=== PATIENT | male | born 1950 | race Caucasian/White ===

== ENCOUNTER 2019-11-19 13:19 | Observation (INO) | payer MEDICARE, OTHER ==
--- NOTE | 2019-11-19 14:04 | ED Physician Documentation ---
History of Present Illness - Stated complaint Stated Complaint: WEAK LEFT ARM, ELEVATED BP,FAINTING - Chief complaint Chief Complaint: Neuro - History obtained from History obtained from: Patient - History of Present Illness Timing: How many hours ago (2) Pain level max: 0 Pain level now: 0 - Additonal information Additional information: Patient is a 69-year-old male who presents to the emergency department stating that he has had left arm weakness that he believes started around noon today. He states his left leg has been weak as well. Has had intermittent symptoms ongoing for the past month or so. Feels like the symptoms are improving now. Still present though. He states that he did lose vision in his left eye for approximately 2 minutes around 6 weeks ago. Saw his doctor and an control clerk and was diagnosed with ocular migraines. He does not take any medications at home. He is prescribed antihypertensive medications, but does not take them. No recent fall or trauma. No headache. No fevers. No recent illness. Review of Systems Ten Systems: 10 systems reviewed and negative Constitutional: denies: Fever, Chills Respiratory: denies: Cough GI: denies: Nausea, Vomiting, Diarrhea Skin: denies: Rash Musculoskeletal: denies: Neck pain, Back pain Neurologic: denies: Headache PD PAST MEDICAL HISTORY - Past Medical History Past Medical History: Yes Cardiovascular: Hypertension - Past Surgical History Past Surgical History: No - Present Medications Home Medications: Ambulatory Orders Medication Instructions Recorded Confirmed No Known Home Medications 11/19/19 11/19/19 - Allergies Allergies/Adverse Reactions: Allergies Allergy/AdvReac Type Severity Reaction Status Date / Time No Known Drug Allergies Allergy Verified 11/19/19 14:27 - Living Situation Living Situation: reports: With family Living Arrangement: reports: At home - Social History Does the pt smoke?: No Does the pt drink ETOH?: No Does the pt have substance abuse?: No - Family History Family history: reports: Non contributory PD ED PE NORMAL - Vitals Vital signs reviewed: Yes - General General: Alert and oriented X 3, No acute distress - HEENT HEENT: Moist mucous membranes - Neck Neck: Supple, no meningeal sign - Cardiac Cardiac: RRR, Strong equal pulses - Respiratory Respiratory: No respiratory distress, Clear bilaterally - Abdomen Abdomen: Soft, Non tender, Non distended - Back Back: No spinal TTP - Derm Derm: Warm and dry - Extremities Extremities: No edema, Other (difficulty with kddqox-do-dpat with the left arm) - Neuro Neuro: Alert and oriented X 3, No sensory deficit Eye Opening: Spontaneous Motor: Obeys Commands Verbal: Oriented GCS Score: 15 - Psych Psych: Normal mood, Normal affect Results - Vitals Vitals: Vital Signs - 24 hr 11/19/19 11/19/19 11/19/19 13:25 14:33 15:00 Temperature 36.8 C Heart Rate 96 91 89 Respiratory 17 16 16 Rate Blood Pressure 168/100 H 150/103 H 158/94 H O2 Saturation 97 97 97 11/19/19 11/19/19 11/19/19 15:30 16:15 16:30 Temperature Heart Rate 88 94 87 Respiratory 16 16 16 Rate Blood Pressure 149/101 H 144/108 H 145/104 H O2 Saturation 97 97 97 Oxygen O2 Source Room air - EKG (time done) 1333 Rate: Rate (enter#) (94) Rhythm: NSR [place]: Anterior hemiblock (LAFB) Intervals: RBBB Ischemia: Normal ST segments Compare to prior EKG: Old EKG unavailable - Labs Labs: Laboratory Tests 11/19/19 11/19/19 11/19/19 13:39 14:00 14:15 WBC 6.8 RBC 5.58 Hgb 17.3 Hct 50.9 MCV 91.2 MCH 31.0 MCHC 34.0 RDW 12.6 Plt Count 186 MPV 9.4 Neut # (Auto) 4.8 Lymph # (Auto) 1.2 L [place] # (Auto) 0.7 Eos # (Auto) 0.1 Baso # (Auto) 0.1 Absolute Nucleated RBC 0.00 Nucleated RBC % 0.0 PT INR APTT Sodium Potassium Chloride Carbon Dioxide Anion Gap BUN Creatinine Estimated GFR (MDRD) Glucose POC Whole Bld Glucose 99 Calcium Total Bilirubin AST ALT Alkaline Phosphatase Troponin I High Sens Total Protein Albumin Globulin Albumin/Globulin Ratio Lipase Urine Color YELLOW Urine Clarity CLEAR Urine pH 6.0 Ur Specific [place] <=1.005 Urine Protein NEGATIVE Urine Glucose (UA) NEGATIVE Urine Ketones NEGATIVE Urine Occult Blood NEGATIVE Urine Nitrite NEGATIVE Urine Bilirubin NEGATIVE Urine Urobilinogen 0.2 (NORMAL) Ur Leukocyte Esterase NEGATIVE Ur Microscopic Review NOT INDICATED Urine Culture Comments NOT INDICATED 11/19/19 11/19/19 11/19/19 14:15 14:15 14:15 WBC RBC Hgb Hct MCV MCH MCHC RDW Plt Count MPV Neut # (Auto) Lymph # (Auto) [place] # (Auto) Eos # (Auto) Baso # (Auto) Absolute Nucleated RBC Nucleated RBC % PT 12.1 INR 1.1 APTT 27.4 Sodium 137 Potassium 3.8 Chloride 102 Carbon Dioxide 25 Anion Gap 10.0 BUN 22 H Creatinine 1.1 Estimated GFR (MDRD) 66 L Glucose 100 POC Whole Bld Glucose Calcium 9.4 Total Bilirubin 0.8 AST 24 ALT 37 Alkaline Phosphatase 81 Troponin I High Sens 68.5 H* Total Protein 7.2 Albumin 4.3 Globulin 2.9 Albumin/Globulin Ratio 1.5 Lipase 33 Urine Color Urine Clarity Urine pH Ur Specific [place] Urine Protein Urine Glucose (UA) Urine Ketones Urine Occult Blood Urine Nitrite Urine Bilirubin Urine Urobilinogen Ur Leukocyte Esterase Ur Microscopic Review Urine Culture Comments 11/19/19 16:06 WBC RBC Hgb Hct MCV MCH MCHC RDW Plt Count MPV Neut # (Auto) Lymph # (Auto) [place] # (Auto) Eos # (Auto) Baso # (Auto) Absolute Nucleated RBC Nucleated RBC % PT INR APTT Sodium Potassium Chloride Carbon Dioxide Anion Gap BUN Creatinine Estimated GFR (MDRD) Glucose POC Whole Bld Glucose Calcium Total Bilirubin AST ALT Alkaline Phosphatase Troponin I High Sens 74.5 H* Total Protein Albumin Globulin Albumin/Globulin Ratio Lipase Urine Color Urine Clarity Urine pH Ur Specific [place] Urine Protein Urine Glucose (UA) Urine Ketones Urine Occult Blood Urine Nitrite Urine Bilirubin Urine Urobilinogen Ur Leukocyte Esterase Ur Microscopic Review Urine Culture Comments - Rads (name of study) head CT Radiology: Prelim report reviewed, EMP read contemporaneously, See rad report Angio head Radiology: Prelim report reviewed, EMP read contemporaneously, See rad report angio neck Radiology: Prelim report reviewed, EMP read contemporaneously, See rad report PD MEDICAL DECISION MAKING - ED course Complexity details: reviewed results, re-evaluated patient, considered differential, d/w patient, d/w telecom sales consultant ED course: Symptoms seem to resolve in the emergency department. Appears consistent with a TIA. No acute findings on head CT, angiogram of the head and neck. Mildly elevated troponin, no change on the 2-hour delta. No chest pain. Patient is prescribed antihypertensive medications, but does not take them. He states he did take aspirin today. Patient does appear forgetful. He lives at home alone. Has friends for support. We will place the patient in observation for TIA work- up. Appears that he may have had several TIAs over the last month or 2. This document was made in part using voice recognition software. While efforts are made to proofread this document, sound alike and grammatical errors may occur. Departure - Departure Disposition: ED Place in Observation Clinical Impression: TIA (transient ischemic attack) Condition: Stable Discharge Date/Time: 11/19/19 17:46 NIHSS - Time Time: 13:40 - Level of Consciousness Level of consciousness: (0) Alert, Keenly responsive LOC Questions: (0) Answers both Q's correct LOC Commands: (0) Performs both correctly - Gaze Best Gaze: (0) Normal - Visual Visual: (0) No loss - Facial Palsy Facial Palsy: (0) Normal, symmetrical movement - Motor Arms (both separate) Motor Arm (right): (0) No drift Motor Arm (left): (1) Drift - Motor Legs (both separate) Motor Leg (right): (0) No drift Motor Leg (left): (0) No drift - Limb Ataxia Limb Ataxia: (1) Present in 1 limb - Sensory Sensory: (0) Normal - Best Language Best Language: (0) No aphasia - Dysarthria Dysarthria: (0) Normal - Extinction and Inattention (formally neg Extinction and inattention: (0) No abnormality - Total Score/Results Total Score/Result: 2
--- NOTE | 2019-11-19 14:10 | CT Report ---
PROCEDURE: Head W/O Stroke Protocol INDICATIONS: L sided weakness TECHNIQUE: Noncontrast 4.5 mm thick angled axial sections acquired from the foramen magnum to the vertex, with c oronal reformats. For radiation dose reduction, the following was used: automated exposure control, adjustment of mA and/or kV according to patient size. COMPARISON: FINDINGS: Image quality: Excellent. CSF spaces: Basal cisterns are patent. No extra-axial fluid collections. Ventricles are normal in size and shape. Brain: No midline shift. No intracranial masses or hemorrhage. Grier-white matter interface is norm al. Skull and face: Calvarium and visualized facial bones are intact, without suspicious lesions. Sinuses: Visualized sinuses and mastoids are clear. IMPRESSION: 1. No acute intracranial findings. 2. Mild findings likely associated with chronic microvascular ischemic changes. These findings were discussed with Dr. Carrasco at 2:09 PM on 11/19/2019 This study fulfills neurological imaging criteria for inclusion or exclusion of acute stroke therapie s based on available published neurological imaging guidelines. Reviewed by: Faye Sebastian MD on 11/19/2019 2:09 PM PDT Approved by: Faye Sebastian MD on 11/19/2019 2:09 PM PDT Station ID: [id number]
[2019-11-19 14:18] LABS: BILIRUBIN,URINE NEGATIVE (NEGATIVE); CLARITY,URINE CLEAR (CLEAR); GLUCOSE, URINE (UA) NEGATIVE (NEGATIVE); KETONES,URINE (UA) NEGATIVE (NEGATIVE); LEUKOCYTE ESTERASE, URINE NEGATIVE (NEGATIVE); NITRITE,URINE NEGATIVE (NEGATIVE); OCCULT BLOOD,URINE NEGATIVE (NEGATIVE); PROTEIN,URINE NEGATIVE (NEGATIVE); UROBILINOGEN,URINE 0.2 (NORMAL) E.U./dL (NORMAL)
[2019-11-19 14:19] LABS: BASOPHILS # (AUTO) 0.1 10^3/uL (0.0-0.1); BASOPHILS % (AUTO) 0.7 %; EOSINOPHILS # (AUTO) 0.1 10^3/uL (0.0-0.7); EOSINOPHILS % (AUTO) 1.8 %; HGB - HEMOGLOBIN 17.3 g/dL (14.0-18.0); LYMPHOCYTES # (AUTO) 1.2 10^3/uL (1.5-3.5); LYMPHOCYTES % (AUTO) 17.4 %; MEAN CORPUSCULAR VOLUME 91.2 fL (80.0-94.0); MEAN PLATELET VOLUME 9.4 fL (7.4-11.4); MONOCYTES # (AUTO) 0.7 10^3/uL (0.0-1.0); MONOCYTES % (AUTO) 9.5 %; NEUTROPHILS # (AUTO) 4.8 10^3/uL (1.5-6.6); NEUTROPHILS % (AUTO) 70.3 %; PLT - PLATELET COUNT 186 10^3/uL (130-450); RED BLOOD COUNT 5.58 10^6/uL (4.70-6.10); RED CELL DISTRIBUTION WIDTH 12.6 % (12.0-15.0); WHITE BLOOD COUNT 6.8 x10^3/uL (4.8-10.8)
[2019-11-19 14:31] LABS: ALBUMIN 4.3 g/dL (3.2-5.5); ALBUMIN/GLOBULIN RATIO 1.5 (1.0-2.2); BILIRUBIN,TOTAL 0.8 mg/dL (0.2-1.0); CALCIUM 9.4 mg/dL (8.5-10.3); CREATININE 1.1 mg/dL (0.6-1.2); TOTAL PROTEIN 7.2 g/dL (6.7-8.2)
[2019-11-19 14:32] LABS: INR 1.1 (0.8-1.2); PT - PROTHROMBIN TIME 12.1 secs (9.9-12.6)
[2019-11-19 14:40] LABS: PARTIAL THROMBOPLASTIN TIME 27.4 secs (24.9-33.3)
[2019-11-19] MEDS ORDERED: IOVERSOL 320 100 ML VIAL IVP ONE ×2 (14:40→17:34)
--- NOTE | 2019-11-19 15:13 | CT Report ---
PROCEDURE: ANGIO HEAD W/WO INDICATIONS: L arm weakness, L leg weakness CONTRAST: IV CONTRAST: Optiray 320 ml: 10 PO CONTRAST: *NO PO CONTRAST TECHNIQUE: Precontrast 4.5 mm thick angled axial sections acquired from the foramen magnum to the vertex. Afte r the administration of intravenous contrast, 1 mm thick sections acquired through the [place] of [place] is. Postcontrast 4.5 mm thick sections then re-acquired from the foramen magnum to the vertex. 3-di mensional ugsauql-[id number]-[id number] (MIP) and/or volume rendering reformats were acquired of the c entral intracranial vasculature. For radiation dose reduction, the following was used: automated ex posure control, adjustment of mA and/or kV according to patient size. COMPARISON: None. FINDINGS: Image quality: Excellent. Anterior circulation: Intracranial internal carotid arteries are normal in size and flow. The flow within the paired anterior cerebral arteries is normal and symmetric. The flow within the middle cer ebral arteries is normal and symmetric. The anterior communicating artery is seen. No aneurysms are seen. Posterior circulation: The visualized portions of the bilateral vertebral arteries demonstrate normal course and caliber. The right vertebral artery is dominant. They join to form the basilar artery whi ch has a fenestrated appearance near the base (series 5/image 36 and series 12/image 105). The basila r artery demonstrates otherwise normal appearance. Flow within the posterior cerebral arteries is nor mal and symmetric. No aneurysms are seen. CSF spaces: Ventricles are normal in size and shape. Basal cisterns are patent. No extra-axial flu id collections. Brain: No midline shift. No intracranial bleeds or masses. Grier-white matter interface appears int act. Skull and face: Calvarium and facial bones appear intact, without suspicious lesions. Sinuses: Visualized sinuses and mastoids are clear. IMPRESSION: 1. 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 2. No stenosis, aneurysm, or occlusion of the intracranial arteries. Reviewed by: Faye Sebastian MD on 11/19/2019 3:12 PM PDT Approved by: Faye Sebastian MD on 11/19/2019 3:12 PM PDT Station ID: [id number]
--- NOTE | 2019-11-19 15:20 | CT Report ---
PROCEDURE: ANGIO NECK W INDICATIONS: L arm weakness, L leg weakness CONTRAST: IV CONTRAST: Optiray 320 ml: 80 PO CONTRAST: *NO PO CONTRAST TECHNIQUE: After the administration of intravenous contrast, 1.5 mm axial sections acquired from the aortic arch to the [place] of [place]. Coronal 3-D maximum intensity projection (MIP) and/or volume rendering ref ormats were then performed. For radiation dose reduction, the following was used: automated exposur e control, adjustment of mA and/or kV according to patient size. COMPARISON: None. FINDINGS: Image quality: Excellent. Carotid system: The great vessels demonstrate a conventional anatomy as they arise from the aortic a [facility]. The origins of the common carotid arteries appear patent. The common carotid arteries demonstr ate normal calibers and courses. The bifurcation regions appear normal bilaterally. The internal ca rotid arteries demonstrate normal caliber and course. Posterior circulation: The origins of the vertebral arteries appear patent. The more superior porti ons of the vertebral arteries demonstrate normal course and caliber. They join to form the basilar ar abigail which demonstrates a fenestration near the inferior aspect. The more superior portions of the ba silar artery demonstrate normal course and caliber. The right vertebral artery is dominant. Soft tissues: Visualized neck soft tissues demonstrate no suspicious abnormalities. The thyroid gla nd is normal in size. Bones: No suspicious bony lesions. Visualized cervical spine appears normally aligned. IMPRESSION: 1. No stenosis, occlusion, or aneurysm of the cervical arteries. 2. 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 The estimate of stenosis included in the report of the imaging study was calculated using the NASCET method Reviewed by: Faye Sebastian MD on 11/19/2019 3:19 PM PDT Approved by: Faye Sebastian MD on 11/19/2019 3:19 PM PDT Station ID: [id number]
[2019-11-19] MEDS ORDERED: ACETAMINOPHEN 325 MG TABLET PO PRN (16:55)
[2019-11-19] MEDS ORDERED: ONDANSETRON ODT 4 MG TABLET TL PRN (16:55)
[2019-11-19] MEDS ORDERED: SODIUM CHLORIDE FLUSH 0.9% 10 ML SYRINGE IVP PRN (16:55)
[2019-11-19] MEDS ORDERED: ONDANSETRON 4 MG/2 ML VIAL IVP PRN (16:55)
[2019-11-19] MEDS ORDERED: oxyCODONE 5 MG TABLET PO PRN (16:55)
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
[2019-11-19] MEDS: SODIUM CHLORIDE FLUSH 0.9% 10 ML SYRINGE IVP SCH (19:03)
[2019-11-19] MEDS ORDERED: ATORVASTATIN 40 MG TABLET PO SCH (21:00)
[2019-11-20] MEDS: SODIUM CHLORIDE FLUSH 0.9% 10 ML SYRINGE IVP SCH ×3 (00:33→18:14)
[2019-11-20 06:28] LABS: CHOL/HDL RATIO 4.7 (<5.0); CHOLESTEROL 230 mg/dL; HDL CHOLESTEROL 49 mg/dL; LDL CHOLESTEROL,CALCULATED 153 mg/dL; LDL/HDL RATIO 3.1 (<3.6); VLDL CHOLESTEROL 28 mg/dL
[2019-11-20] MEDS ORDERED: ASPIRIN CHEW 81 MG TABLET PO SCH (09:00)
--- NOTE | 2019-11-20 10:32 | PHARMACY PROGRESS NOTE ---
- Best Possible Medication History Admit Date and Time: 11/19/19 6404 Processed by: Nursing Medication History completed: Yes As the person ultimately responsible for medication therapy, providers are able to order a medication from an existing home medication list in [facility] via the "Reconcile Routine" prior to Confirmation of that medication by support architect. Such practice is discouraged except when the physician, in their clinical judgment, deems that a medical need exists for a medication without regard to previous use.
[2019-11-20 15:28] VITALS: BP 139/96
--- NOTE | 2019-11-20 17:03 | MRI Report ---
PROCEDURE: Brain W/O INDICATIONS: TIA, left arm weak TECHNIQUE: Noncontrast axial T1 spin echo, axial T2 fast spin echo, sagittal and axial FLAIR, coronal T2 fast sp in echo, axial gradient echo, axial diffusion and ADC through the brain. COMPARISON: None. FINDINGS: Image quality: Excellent. CSF Spaces: Basal cisterns are patent. No extra-axial fluid collections. Ventricles are normal in size and shape. Brain: No intracranial masses or hemorrhage. Diffuse, scattered nonspecific white matter signal kelly ges, statistically represent chronic microvascular ischemic disease although differential includes ne urodegenerative, infectious/inflammatory, demyelinating etiologies among other possibilities. Grier/white matter interface is normal. Brainstem appears normal. Diffusion-weighted images demons trate subcentimeter focus of right frontal parietal acute ischemia at the vertex. No chronic ischemic insults. Normal intravascular flow voids are present. Skull and face: Calvarium has normal marrow signal. Orbits appear normal. Hmdf-bx-bufmubme right maxillary sinus disease. IMPRESSION: Subcentimeter focus of right frontoparietal lobe acute ischemia at the vertex. Mild to moderate maxillary sinus disease Reviewed by: Kel Sanchez MD on 11/20/2019 5:01 PM PDT Approved by: Kel Sanchez MD on 11/20/2019 5:01 PM PDT Station ID: [id number]
--- NOTE | 2019-11-20 19:32 | Discharge Plan ---
Discharge Plan Problem Reviewed?: Yes Disposition: Home, Self Care Condition: Stable Prescriptions: Atorvastatin [Lipitor] 80 mg PO QPM #30 tablet amLODIPine [Norvasc] 2.5 mg PO DAILY #30 tablet Diet: Low Sodium Activity Restrictions: Activity as Tolerated Shower Restrictions: No Driving Restrictions: No Health Concerns: He came in with an episode of lack of vision in one eye, and left arm/left leg weakness. In the emergency room your exam was negative. CT was negative. In the angiograms that looked at the arteries of your head and neck were also normal. Over the next day we observed you and your telemetry monitoring did not have any arrhythmia. That is important because atrial fibrillation, and arrhythmia, can give you stroke. You do not have that. However we did find you to have valvular heart disease. You have moderate aortic stenosis. Aortic stenosis can give you symptoms of stroke. The revenue officer at [facility] does not feel that is the case. But they would like to see you in follow-up. MRI of the brain did confirm that you had a very small area of stroke in the right front of your brain just underneath your anabaptism. You are walking, talking, eating, and have no speech difficulty. Plan of Treatment: 1. A daily aspirin in the morning 2. A daily blood pressure pill in the morning called amlodipine 3. Cholesterol pill at night. 4. Please see Joaquim lizarraga in the next few days. Aspen lizarraga then needs to refer you to cardiology for evaluation of aortic stenosis combined with a history of stroke. Care Goals: To decrease your risk of recurrent stroke. Assessment: Patient, stepdaughter Narda, understand care goals and will follow through. No Smoking: If you smoke, Please STOP! Call for help. Follow-up with: JOAQUIM LIZARRAGA ARNP [Primary Care Provider] -
[2019-11-20] MEDS ORDERED: amLODIPine 5 MG TABLET PO ONE (19:35)
== END 2019-11-20 19:58 | disposition home or self-care (01) ==
LOC: ED 13:19 → MS3 16:55
PROVIDERS: ADMIT Specialist; ATTEND Specialist
DX: G45.9 Transient cerebral ischemic attack, unspecified (principal); I35.0 Nonrheumatic aortic (valve) stenosis; R29.702 NIHSS score 2; I10 Essential (primary) hypertension; E78.5 Hyperlipidemia, unspecified; K21.9 Gastro-esophageal reflux disease without esophagitis; F41.9 Anxiety disorder, unspecified; R35.1 Nocturia; R79.89 Other specified abnormal findings of blood chemistry; Z87.891 Personal history of nicotine dependence
CPT/HCPCS: 36415; 70450; 70496; 70498; 70551; 80053; 80061; 81003; 83690; 84484; 85025; 85610; 85730; 93005; 93306; 99285; A9270; G0378; Q9967; 81001; 83721; 87086

== ENCOUNTER 2020-08-18 07:18 | Outpatient (CLI) | payer MEDICARE, OTHER ==
[2020-08-18 16:40] LABS: CHOL/HDL RATIO 2.1 (<5.0); CHOLESTEROL 115 mg/dL; HDL CHOLESTEROL 55 mg/dL; LDL CHOLESTEROL,CALCULATED 48 mg/dL; LDL/HDL RATIO 0.9 (<3.6); TRIGLYCERIDES 62 mg/dL; VLDL CHOLESTEROL 12 mg/dL
[2020-08-18 16:43] LABS: PSA TOTAL 6.715 ng/mL (0.000-2.000)
[2020-08-18 19:23] LABS: PSA FREE 1.261 ng/mL (0.16-2.81)
== END 2020-08-18 07:19 | disposition home or self-care (01) ==
LOC: LAB.S 07:18
PROVIDERS: ATTEND Nurse Practitioner Family
DX: R97.20 Elevated prostate specific antigen [PSA] (principal); E78.2 Mixed hyperlipidemia
CPT/HCPCS: 36415; 80061; 83721; 84153; 84154

== ENCOUNTER 2020-10-03 07:56 | Outpatient (CLI) | payer MEDICARE, OTHER ==
[2020-10-03 16:54] LABS: CHOL/HDL RATIO 2.7 (<5.0); CHOLESTEROL 150 mg/dL; HDL CHOLESTEROL 56 mg/dL; LDL CHOLESTEROL,CALCULATED 75 mg/dL; LDL/HDL RATIO 1.3 (<3.6); TRIGLYCERIDES 96 mg/dL; VLDL CHOLESTEROL 19 mg/dL
== END 2020-10-03 07:57 | disposition home or self-care (01) ==
LOC: LAB.S 07:56
PROVIDERS: ATTEND Nurse Practitioner Family
DX: E78.2 Mixed hyperlipidemia (principal)
CPT/HCPCS: 36415; 80061; 83721

== ENCOUNTER 2021-07-07 07:35 | Outpatient (CLI) | payer MEDICARE, OTHER ==
[2021-07-07 15:55] LABS: CHOL/HDL RATIO 4.3 (<5.0); CHOLESTEROL 193 mg/dL; HDL CHOLESTEROL 45 mg/dL; LDL CHOLESTEROL,CALCULATED 131 mg/dL; LDL/HDL RATIO 2.9 (<3.6); TRIGLYCERIDES 85 mg/dL; VLDL CHOLESTEROL 17 mg/dL
== END 2021-07-07 07:36 | disposition home or self-care (01) ==
LOC: LAB.S 07:35
PROVIDERS: ATTEND Nurse Practitioner Family
DX: E78.5 Hyperlipidemia, unspecified (principal); R97.20 Elevated prostate specific antigen [PSA]; R77.8 Other specified abnormalities of plasma proteins
CPT/HCPCS: 36415; 80061; 82728; 83721; 84153

== ENCOUNTER 2021-12-21 10:20 | Day surgery (SDC) | payer MEDICARE, OTHER ==
[~2021-12-21 10:20] MED LIST: BRIMONIDINE 0.2% OPHTH DROPS 5 ML ONE; BSS/LIDOCAINE/EPINEPHRINE 1 ML VIAL ONE; CYCLOPENTOLATE 1% OPHTH DROPS 2 ML ONE; EPINEPHrine 1 MG/ML AMP ONE; KETOROLAC 0.45% OPHTH DROPS ONE; PHENYLEPHRINE 2.5% OPHTH 2 ML DROPS ONE; PROPARACAINE 0.5% OPHTH DROPS 15 ML ONE; TIMOLOL 0.5% OPHTH DROPS ONE; TRIAMCIN/MOXIFLOX OPHTHALMIC 0.6 ML VIAL IO ONE; VANCOMYCIN OPHTH (TOPICAL) 10 MG/ML SYRINGE ONE
[2021-12-21] MEDS ORDERED: LACTATED RINGERS 1,000 ML IV ONE ×2 (10:55→12:04)
[2021-12-21] MEDS ORDERED: MIDAZOLAM 2 MG/2 ML VIAL ONE (11:26)
--- NOTE | 2021-12-21 11:30 | ANESTHESIA ---
Pre-Anesthesia VS, & Labs - Diagnosis nuclear sclerotic cataract right - Procedure right cataract extraction with IOL Vital Signs: Temp Pulse Resp BP Pulse Ox O2 Flow Rate 36.1 C L 58 L 16 136/101 H 100 0 12/21/21 10:44 12/21/21 10:44 12/21/21 10:44 12/21/21 10:44 12/21/21 10:44 12/21/21 10:44 Height: 5 ft 7 in Weight (kg): 69 kg Body Mass Index: 23.8 BMI Classification: Normal - NPO >8 hours Home Medications and Allergies Allergies/Adverse Reactions: Allergies Allergy/AdvReac Type Severity Reaction Status Date / Time No Known Drug Allergies Allergy Verified 11/19/19 14:27 Anes History & Medical History - Anesthetic History Anesthesia Complications: reports: No previous complications - Medical History Cardiovascular: reports: Hypertension, High cholesterol Gastrointestinal: reports: GERD, Other Urinary: reports: Other Neuro: reports: Other (Ocular migraine) Musculoskeletal: reports: Other Endocrine/Autoimmune: reports: None Skin: reports: Psoriasis Smoking Status: Former smoker History of Cancer?: No Plan Anesthesia Type: MAC Consent for Procedure(s) Verified and Reviewed: Yes Code Status: Attempt Resuscitation ASA classification: 2-Mild systemic disease Is this case an emergency?: No
[2021-12-21] MEDS ORDERED: BRIMONIDINE 0.2% OPHTH DROPS 5 ML OPTH ONE (11:56)
[2021-12-21] MEDS ORDERED: EPINEPHrine 1 MG/ML AMP IR ONE (11:56)
[2021-12-21] MEDS ORDERED: TIMOLOL 0.5% OPHTH DROPS OPTH ONE (11:56)
[2021-12-21] MEDS ORDERED: PROPARACAINE 0.5% OPHTH DROPS 15 ML EACHEYE ONE (11:57)
[2021-12-21] MEDS ORDERED: TRIAMCIN/MOXIFLOX OPHTHALMIC 0.6 ML VIAL IO ONE (11:57)
[2021-12-21] MEDS ORDERED: BSS/LIDOCAINE/EPINEPHRINE 1 ML SYRINGE IO ONE (11:57)
[2021-12-21] MEDS ORDERED: VANCOMYCIN OPHTH (TOPICAL) 10 MG/ML SYRINGE TOP ONE (11:58)
--- NOTE | 2021-12-21 12:05 | OPERATIVE REPORT ---
Operative Report - Procedure Note Pathology: Date of Surgery: 12/21/21 Preop Dx: Visually significant cataract right eye. This was the first cataract surgery. Postop Dx: Same Procedure: Phacoemulsification with posterior chamber toric intraocular lens implant right eye Surgeon: Dr. Francisco Murray Anesthesia: Monitored anesthesia care Complications: None Operative Indications: This is a 71-year-old M with progressive vision loss in the right eye due to 2+ nuclear sclerotic and vacuolar cataract. Best corrected visual acuity was 20/30 with glare to 20/200 vision in the right eye. Indications for surgery were: - Overall decrease in vision - Difficulty seeing words on a computer screen - Difficulty reading - Difficulty seeing words, closed captions, or game scores on TV - Difficulty seeing street signs - Difficulty driving in low light or at night - Difficulty driving at night because of headlights from other vehicles - Difficulty with glare or bright lights in any situation The patient was consented at length concerning the risks and benefits of cataract surgery after which the patient expressed a desire to proceed with surgery. Operative Procedure: The patients cornea was marked in the pre-surgical area to indicate the axis for the toric intraocular lens. The patient was taken into OR#3 and placed under monitored anesthesia care. A surgical time-out was conducted confirming correct patient, correct procedure, and correct surgical site. The patient was given topical anesthesia and then prepped and draped in the usual sterile fashion. The eye was entered at the 6 and 3 oclock positions. Intracameral Shugarcaine was injected into the anterior chamber followed by a dispersive viscoelastic. A continuous-tear curvilinear capsulorhexis was performed. The nucleus was hydrodissected and phacoemulsified. The cortex was evacuated using automated infusion and aspiration. A cohesive viscoelastic was injected into the capsular bag and a 19.5 diopter toric intraocular lens was inserted into the bag and rotated to axis 028. Infusion and aspiration were used to evacuate the viscoelastic materials from the eye and the IOL was verified to remain on axis. The wounds were hydrated and the eye inflated to physiologic pressure using balanced salt solution. Approximately 0.25ml of a mixture of triamcinolone and moxifloxacin was injected trans- sclerally into the vitreous in the inferotemporal quadrant using a 30 gauge cannula. An additional 0.55ml of a mixture of triamcinolone and moxifloxacin was injected subconjunctivally in the superior quadrant for infection and inflammation prophylaxis. Wound integrity was checked with Weck-Ani sponges and the IOL axis was once again verified to be on the correct axis. The patient was taken from the operating room in good condition and given post-op instructions.
[2021-12-21 12:10] VITALS: BP 121/70
--- NOTE | 2021-12-21 15:56 | ANESTHESIA POST OP EVALUATION ---
Anesthesia Post Eval - Post Anesthesia Eval Vitals: Last Vital Signs Temp 36.2 C L 12/21/21 12:06 Pulse 65 12/21/21 12:09 Resp 17 12/21/21 12:09 BP 121/70 12/21/21 12:09 Pulse Ox 100 12/21/21 12:09 O2 Flow Rate 0 12/21/21 10:44 CV Function Including HR & BP: Stable Pain Control: Satisfactory Nausea & Vomiting: Negative Mental Status: Baseline Respiratory Status: Airway Patent Hydration Status: Satisfactory Anesthesia Complications: None
== END 2021-12-21 10:21 | disposition home or self-care (01) ==
LOC: SDS 10:20
PROVIDERS: ATTEND Ophthalmology
DX: H25.11 Age-related nuclear cataract, right eye (principal)
CPT/HCPCS: 66984; A9270; J3490; J7120; V2632; V2787

== ENCOUNTER 2023-09-17 04:09 | Outpatient (CLI) | payer MEDICARE, OTHER | END 2023-09-17 23:59 | disposition EMS.NT | LOC: EMS 04:09 | DX: I10 Essential (primary) hypertension (principal); R45.89 Other symptoms and signs involving emotional state ==